=== PATIENT | female | born 1960 | race African-American/Black ===

== ENCOUNTER 2018-06-14 17:36 | Inpatient (IN) | payer OTHER ==
[~2018-06-14] VITALS: Ht 157.5 cm; Wt 54.9 kg
[2018-06-14] MEDS ORDERED: NORTRIPTYLINE H10 MG PO (17:46)
[2018-06-14] MEDS ORDERED: NORVASC5 MG ORAL (17:46)
[2018-06-14 17:51] VITALS: BP 122/77
[2018-06-14 19:12] LABS: BASOPHILS % (AUTO) 1.9 % (0.0-2.0); EOSINOPHILS % (AUTO) 0.8 % (0.0-3.0); HEMATOCRIT 45.8 % (37.0-47.0); HEMOGLOBIN 14.7 G/DL (12.0-16.0); LYMPHOCYTES % (AUTO) 14.8 % (20.0-45.0); MEAN CORPUSCULAR VOLUME 94 FL (80-99); MONOCYTES % (AUTO) 10.7 % (1.0-10.0); NEUTROPHILS % (AUTO) 71.7 % (45.0-75.0); PLATELET COUNT 211 K/UL (150-450); RED BLOOD COUNT 4.85 M/UL (4.20-5.40); RED CELL DISTRIBUTION WIDTH 13.1 % (11.6-14.8); WHITE BLOOD COUNT 7.3 K/UL (4.8-10.8)
[2018-06-14 19:43] LABS: ANION GAP 9 mmol/L (5-15); BLOOD UREA NITROGEN 11 mg/dL (7-18); CALCIUM 9.4 MG/DL (8.5-10.1); CARBON DIOXIDE 27 MMOL/L (21-32); CHLORIDE 106 MMOL/L (98-107); CREATININE 0.9 MG/DL (0.55-1.30); POTASSIUM 3.7 MMOL/L (3.5-5.1); SODIUM 142 MMOL/L (136-145)
[2018-06-14 19:57] LABS: ALANINE AMINOTRANSFERASE 25 U/L (12-78); ALBUMIN/GLOBULIN RATIO 1.1 (1.0-2.7); ALKALINE PHOSPHATASE 71 U/L (46-116); ASPARTATE AMINO TRANSFERASE 18 U/L (15-37); BILIRUBIN,TOTAL 0.8 MG/DL (0.2-1.0); CKMB 1.1 NG/ML (0.0-3.6); CREATINE KINASE 98 U/L (26-308)
[2018-06-14] MEDS ORDERED: PEPCID AC20 M2 PO (20:04)
[2018-06-14] MEDS ORDERED: Nitroglycerin 2% oint pkt TOPIC ONE (20:15)
[2018-06-14] MEDS ORDERED: PANTOPRAZOLE SO40 MG ORAL (20:24)
[2018-06-14] MEDS ORDERED: MURINE EAR WAX15 ML OT ×2 (20:24→20:25)
[2018-06-14 20:47] VITALS: BP 163/82
--- NOTE | 2018-06-14 21:09 | Emergency Room Report ---
History of Present Illness General Chief Complaint: Chest Pain Source: Patient (Olga Adair DO) Present Illness HPI Patient presents with complaints of chest pain and palpitations Reports that over the past 24 hours she had several episodes Today prior to arrival she had another episode where she felt tickling sensation throughout her chest Sharp pain as well not midsternal region There was some component of shortness of breath which has resolved Patient has recently been started on blood pressure medication about 7 days ago Patient's sister is also physician whom i spoke with over the phone Denies any other recent travel Denies any vomiting or diarrhea denies any fevers or chills (ThereseOlga wang ) Allergies: Coded Allergies: ASPIRIN (Verified Allergy, Mild, HIVE, 06/14/18) IBUPROFEN (Verified Allergy, Unknown, 06/14/18) Patient History Past Medical History: see triage record Pertinent Family History: none Reviewed Nursing Documentation: PMH: Agreed; PSxH: Agreed (Olga Adair DO) Nursing Documentation-PMH Past Medical History: No Stated History (ThereseOlga wang DO) Review of Systems All Other Systems: negative except mentioned in HPI (Olga Adair DO) Physical Exam Vital Signs Date Time Temp Pulse Resp B/P (MAP) Pulse Ox O2 Delivery O2 Flow Rate FiO2 06/14/18 17:42 98.4 116 16 160/93 97 Room Air 06/14/18 17:51 99 Sp02 EP Interpretation: reviewed, normal General Appearance: well appearing, no apparent distress Head: normocephalic, atraumatic Eyes: bilateral eye PERRL, bilateral eye EOMI ENT: hearing grossly normal, normal pharynx, TMs + canals normal, uvula midline Neck: full range of motion, supple, no meningismus, no bony tend Respiratory: lungs clear, normal breath sounds, no rhonchi, no respiratory distress, no retraction, no accessory muscle use Cardiovascular #1: normal peripheral pulses, regular rate, rhythm, no edema, no gallop, no JVD, no murmur Gastrointestinal: normal bowel sounds, non tender, soft, no mass, no organomegaly, non-distended, no guarding, no hernia, no pulsatile mass, no rebound Genitourinary: no CVA tenderness Musculoskeletal: normal inspection Neurologic: oriented x3, responsive, structural manager III-XII nml as tested, motor strength/ tone normal, sensory intact Psychiatric: mood/affect normal Skin: normal color, no rash, warm/dry, palpation normal Lymphatic: normal inspection, no adenopathy (Olga Adair DO) Medical Decision Making Diagnostic Impression: Primary Impression: ACS (acute coronary syndrome) Additional Impression: Hypertension Qualified Codes: I10 - Essential (primary) hypertension ER Course Patient is a fairly complex patient with multiple differential to consideration including but not limited to cardiac cardiopulmonary and vascular emergencies Patient's blood work is appropriate given some question regarding short of breath d-dimer was also obtained which was negative Patient continues not to display any pleurisy Patient was provided with nitroglycerin listed allergies of aspirin Has done better Given the recent diagnoses her complaints and presentation patient was admitted for further care Labs Test 06/14/18 18:30 White Blood Count 7.3 K/UL (4.8-10.8) Red Blood Count 4.85 M/UL (4.20-5.40) Hemoglobin 14.7 G/DL (12.0-16.0) Hematocrit 45.8 % (37.0-47.0) Mean Corpuscular Volume 94 FL (80-99) Mean Corpuscular Hemoglobin 30.3 PG (27.0-31.0) Mean Corpuscular Hemoglobin Concent 32.2 G/DL (32.0-36.0) Red Cell Distribution Width 13.1 % (11.6-14.8) Platelet Count 211 K/UL (150-450) Mean Platelet Volume 7.3 FL (6.5-10.1) Neutrophils (%) (Auto) 71.7 % (45.0-75.0) Lymphocytes (%) (Auto) 14.8 % (20.0-45.0) Monocytes (%) (Auto) 10.7 % (1.0-10.0) Eosinophils (%) (Auto) 0.8 % (0.0-3.0) Basophils (%) (Auto) 1.9 % (0.0-2.0) D-Dimer 0.19 mg/L FEU (0.00-0.49) Sodium Level 142 MMOL/L (136-145) Potassium Level 3.7 MMOL/L (3.5-5.1) Chloride Level 106 MMOL/L (98-107) Carbon Dioxide Level 27 MMOL/L (21-32) Anion Gap 9 mmol/L (5-15) Blood Urea Nitrogen 11 mg/dL (7-18) Creatinine 0.9 MG/DL (0.55-1.30) Estimat Glomerular Filtration Rate > 60 mL/min (>60) Glucose Level 116 MG/DL (74-106) Calcium Level 9.4 MG/DL (8.5-10.1) Total Bilirubin 0.8 MG/DL (0.2-1.0) Aspartate Amino Transf (AST/SGOT) 18 U/L (15-37) Alanine Aminotransferase (ALT/SGPT) 25 U/L (12-78) Alkaline Phosphatase 71 U/L (46-116) Total Creatine Kinase 98 U/L (26-308) Creatine Kinase MB 1.1 NG/ML (0.0-3.6) Creatine Kinase MB Relative Index 1.1 Troponin I 0.000 ng/mL (0.000-0.056) Pro-B-Type Natriuretic Peptide 38 pg/mL (0-125) Total Protein 7.7 G/DL (6.4-8.2) Albumin 4.0 G/DL (3.4-5.0) Globulin 3.7 g/dL Albumin/Globulin Ratio 1.1 (1.0-2.7) (Olga Adair DO) ER Course Patient signout to me by Dr. Adair. She presents with chest pain and hypertension. She is currently not on any medication. Chest pain resolved after nitroglycerin. Labs unremarkable. Troponin negative. D-dimer negative. Patient approved by insurance to be admitted here. I contacted Dr. Cornell for admission. (Johann Shields MD) EKG Diagnostic Results Rate: normal Rhythm: NSR ST Segments: other - LVH, nonspecific ST T-wave changes (Olga Adair DO) Rhythm Strip Diag. Results EP Interpretation: yes Rate: 98 Rhythm: NSR, no PVC's, no ectopy (Olga Adair DO) Chest X-Ray Diagnostic Results Chest X-Ray Diagnostic Results : Chest X-Ray Ordered: Yes # of Views/Limited/Complete: 1 View Indication: Chest Pain EP Interpretation: Yes Interpretation: no consolidation, no effusion, no pneumothorax Impression: No acute disease Electronically Signed by: Olga Adair DO (Olga Adair DO) Last Vital Signs Date Time Temp Pulse Resp B/P (MAP) Pulse Ox O2 Delivery O2 Flow Rate FiO2 06/14/18 20:47 97.8 103 17 163/82 100 Room Air 06/14/18 17:51 99 Status: improved (Olga Adair DO) Status: improved (Johann Shields MD) Disposition: ADMITTED INPATIENT Condition: Serious Scripts Famotidine (PEPCID AC) 20 Mg Tablet 20 MG PO DAILY for 7 Days, TAB Prov: Olga Adair DO 06/14/18 Referrals: Lana FITZPATRICK,REFERRING (PCP) Patient Instructions: Nonspecific Chest Pain Olga Adair DO Jun 14, 2018 21:09 Johann Shields MD Jun 14, 2018 21:49
[2018-06-15] VITALS: BP 147/90
[2018-06-15] MEDS ORDERED: Nitroglycerin Subl 0.4mg tab SL PRN (00:15)
[2018-06-15 01:44] LABS: APPEARANCE,URINE CLEAR; BILIRUBIN, URINE NEGATIVE (NEGATIVE); COLOR,URINE PALE YELLOW; GLUCOSE, URINE (UA) NEGATIVE (NEGATIVE); KETONES,URINE NEGATIVE (NEGATIVE); LEUKOCYTE ESTERASE ,URINE 2+ (NEGATIVE); NITRITE,URINE NEGATIVE (NEGATIVE); PH,URINE 7 (4.5-8.0); PROTEIN,URINE NEGATIVE (NEGATIVE); UROBILINOGEN,URINE NORMAL MG/DL (0.0-1.0)
[2018-06-15 04:00] VITALS: BP 124/81
[2018-06-15 07:35] LABS: BASOPHILS % (AUTO) 2.1 % (0.0-2.0); EOSINOPHILS % (AUTO) 0.7 % (0.0-3.0); HEMATOCRIT 42.8 % (37.0-47.0); LYMPHOCYTES % (AUTO) 24.8 % (20.0-45.0); MEAN CORPUSCULAR VOLUME 95 FL (80-99); NEUTROPHILS % (AUTO) 56.4 % (45.0-75.0); PLATELET COUNT 204 K/UL (150-450); RED BLOOD COUNT 4.52 M/UL (4.20-5.40); RED CELL DISTRIBUTION WIDTH 13.2 % (11.6-14.8); WHITE BLOOD COUNT 5.7 K/UL (4.8-10.8)
[2018-06-15 07:40] VITALS: BP 140/80
[2018-06-15 08:03] LABS: ANION GAP 8 mmol/L (5-15); BLOOD UREA NITROGEN 10 mg/dL (7-18); CALCIUM 8.7 MG/DL (8.5-10.1); CARBON DIOXIDE 27 MMOL/L (21-32); CHLORIDE 106 MMOL/L (98-107); CREATININE 0.8 MG/DL (0.55-1.30); POTASSIUM 3.7 MMOL/L (3.5-5.1); SODIUM 141 MMOL/L (136-145)
[2018-06-15] MEDS: Heparin 5000 units/ml inj SUBQ SCH ×2 (08:12→21:00)
--- NOTE | 2018-06-15 09:20 | History and Physical ---
History of Present Illness General Date patient seen: Jun 15, 2018 Time patient seen: 08:00 Reason for Hospitalization: Chest Pain Present Illness HPI 57 year old woman with history of HTN who presented to the ED with 1 week of intermittent left sided chest tightness. No discreet pain, no radiation, no diaphoresis or nausea. Past medical history: HTN Family History: No history of premature CAD Social History: Patient is a never smoker Allergies: Coded Allergies: ASPIRIN (Verified Allergy, Mild, HIVE, 06/14/18) IBUPROFEN (Verified Allergy, Unknown, 06/14/18) Medication History Scheduled Amlodipine Besylate (Norvasc), 5 MG ORAL DAILY, (Reported) Famotidine (Pepcid Ac), 20 MG PO DAILY Nortriptyline Hcl (Nortriptyline Hcl), 10 MG PO BEDTIME, (Reported) Scheduled PRN Carbamide Peroxide (Murine Ear Wax Removal System), 15 ML OT DAILY PRN for wax buildup, (Reported) Patient History Healthcare decision maker Resuscitation status Full Code Advanced Directive on File No Review of Systems Constitutional: Denies: chills, sweats Eye: Denies: eye pain, blurred vision ENT: Denies: ear pain, ear discharge Respiratory: Denies: cough, orthopnea Cardiovascular: Denies: chest pain, edema, palpitations Gastrointestinal: Denies: abdominal pain, constipation Genitourinary: Denies: discharge, dysuria Musculoskeletal: Denies: back pain, gout Skin: Denies: rash, change in color Neurological: Denies: headache, numbness Endocrine: Denies: excessive sweating Hematologic/Lymphatic: Denies: anemia Physical Exam General Appearance: no apparent distress, alert HEENT: normocephalic, anicteric Neck: non-tender, normal alignment Respiratory/Chest: chest wall non-tender, lungs clear, normal breath sounds Cardiovascular/Chest: normal peripheral pulses, normal rate, regular rhythm Abdomen: normal bowel sounds, non tender, soft Genitourinary/Rectal: normal genital exam Extremities: normal range of motion, non-tender Skin Exam: normal pigmentation, warm/dry Neurologic: naphthalene still operator II-XII grossly normal, no motor/sensory deficits Last 24 Hour Vital Signs Date Time Temp Pulse Resp B/P (MAP) Pulse Ox O2 Delivery O2 Flow Rate FiO2 06/15/18 08:12 90 140/80 06/15/18 07:40 90 20 140/80 (100) 97 06/15/18 07:10 Room Air 06/15/18 04:00 100.4 96 20 124/81 (95) 97 06/15/18 00:34 Room Air 06/15/18 00:00 109 06/15/18 00:00 97.9 108 20 147/90 (109) 97 06/14/18 23:17 98.5 105 13 156/80 99 Room Air 06/14/18 20:47 97.8 103 17 163/82 100 Room Air 06/14/18 20:14 173/79 06/14/18 17:51 81 17 Room Air 99 06/14/18 17:51 97.8 81 17 122/77 99 Room Air 06/14/18 17:42 98.4 116 16 160/93 97 Room Air Intake and Output 06/14/18 06/15/18 19:00 07:00 Intake Total 0 ml Balance 0 ml Intake Oral 0 ml # Voids 1 2 Laboratory Tests Test 06/14/18 18:30 06/15/18 01:00 06/15/18 06:55 White Blood Count 7.3 K/UL (4.8-10.8) 5.7 K/UL (4.8-10.8) Red Blood Count 4.85 M/UL (4.20-5.40) 4.52 M/UL (4.20-5.40) Hemoglobin 14.7 G/DL (12.0-16.0) 14.0 G/DL (12.0-16.0) Hematocrit 45.8 % (37.0-47.0) 42.8 % (37.0-47.0) Mean Corpuscular Volume 94 FL (80-99) 95 FL (80-99) Mean Corpuscular Hemoglobin 30.3 PG (27.0-31.0) 31.0 PG (27.0-31.0) Mean Corpuscular Hemoglobin Concent 32.2 G/DL (32.0-36.0) 32.7 G/DL (32.0-36.0) Red Cell Distribution Width 13.1 % (11.6-14.8) 13.2 % (11.6-14.8) Platelet Count 211 K/UL (150-450) 204 K/UL (150-450) Mean Platelet Volume 7.3 FL (6.5-10.1) 7.7 FL (6.5-10.1) Neutrophils (%) (Auto) 71.7 % (45.0-75.0) 56.4 % (45.0-75.0) Lymphocytes (%) (Auto) 14.8 % (20.0-45.0) L 24.8 % (20.0-45.0) Monocytes (%) (Auto) 10.7 % (1.0-10.0) H 16.0 % (1.0-10.0) H Eosinophils (%) (Auto) 0.8 % (0.0-3.0) 0.7 % (0.0-3.0) Basophils (%) (Auto) 1.9 % (0.0-2.0) 2.1 % (0.0-2.0) H D-Dimer 0.19 mg/L FEU (0.00-0.49) Sodium Level 142 MMOL/L (136-145) 141 MMOL/L (136-145) Potassium Level 3.7 MMOL/L (3.5-5.1) 3.7 MMOL/L (3.5-5.1) Chloride Level 106 MMOL/L (98-107) 106 MMOL/L (98-107) Carbon Dioxide Level 27 MMOL/L (21-32) 27 MMOL/L (21-32) Anion Gap 9 mmol/L (5-15) 8 mmol/L (5-15) Blood Urea Nitrogen 11 mg/dL (7-18) 10 mg/dL (7-18) Creatinine 0.9 MG/DL (0.55-1.30) 0.8 MG/DL (0.55-1.30) Estimat Glomerular Filtration Rate > 60 mL/min (>60) > 60 mL/min (>60) Glucose Level 116 MG/DL (74-106) H 101 MG/DL (74-106) Calcium Level 9.4 MG/DL (8.5-10.1) 8.7 MG/DL (8.5-10.1) Total Bilirubin 0.8 MG/DL (0.2-1.0) Aspartate Amino Transf (AST/SGOT) 18 U/L (15-37) Alanine Aminotransferase (ALT/SGPT) 25 U/L (12-78) Alkaline Phosphatase 71 U/L (46-116) Total Creatine Kinase 98 U/L (26-308) Creatine Kinase MB 1.1 NG/ML (0.0-3.6) Creatine Kinase MB Relative Index 1.1 Troponin I 0.000 ng/mL (0.000-0.056) 0.014 ng/mL (0.000-0.056) Pro-B-Type Natriuretic Peptide 38 pg/mL (0-125) Total Protein 7.7 G/DL (6.4-8.2) Albumin 4.0 G/DL (3.4-5.0) Globulin 3.7 g/dL Albumin/Globulin Ratio 1.1 (1.0-2.7) Urine Color Pale yellow Urine Appearance Clear Urine pH 7 (4.5-8.0) Urine Specific [place] 1.015 (1.005-1.035) Urine Protein Negative (NEGATIVE) Urine Glucose (UA) Negative (NEGATIVE) Urine Ketones Negative (NEGATIVE) Urine Blood Negative (NEGATIVE) Urine Nitrite Negative (NEGATIVE) Urine Bilirubin Negative (NEGATIVE) Urine Urobilinogen Normal MG/DL (0.0-1.0) Urine Leukocyte Esterase 2+ (NEGATIVE) H Urine RBC 0-2 /HPF (0 - 2) Urine WBC 5-10 /HPF (0 - 2) H Urine Squamous Epithelial Cells Few /LPF (NONE/OCC) Urine Bacteria Few /HPF (NONE) Hemoglobin A1c 6.3 % (4.3-6.0) H Height (Feet): 5 Height (Inches): 2.00 Weight (Pounds): 121 Medications Current Medications Medications (Trade) Dose Ordered Sig/Ventura Route PRN Reason Start Time Stop Time Status Last Admin Dose Admin Amlodipine Besylate (Norvasc) 5 mg DAILY ORAL 06/15/18 09:00 07/15/18 08:59 06/15/18 08:12 Heparin Sodium (Porcine) (Heparin 5000 units/ml) 5,000 units EVERY 12 HOURS SUBQ 06/15/18 09:00 07/15/18 08:59 Nitroglycerin (Ntg) 0.4 mg Q5M PRN SL Prn Chest Pain 06/15/18 00:15 07/15/18 00:14 Nortriptyline HCl (Pamelor) 10 mg BEDTIME ORAL 2/5/19 21:00 07/15/18 20:59 Temazepam (Restoril) 7.5 mg HSPRN PRN ORAL Insomnia 06/15/18 00:15 06/22/18 00:14 06/15/18 00:48 Assessment/Plan Assessment/Plan #Intermittent chest tightness, concern for ACS admit to observation check serial cardiac enzymes monitor on telemetry add ASA and statin check Lipid panel Cardiology consulted #Essential HTN continue amlodipine VTE PPx heparin sc Full Code Bennie Arzate MD Jun 15, 2018 09:20
[2018-06-15] MEDS ORDERED: Acetaminophen 500mg (ES) tab ORAL SCH (10:45)
--- NOTE | 2018-06-15 11:39 | Diagnostic Imaging Report ---
Indication: Chest pain Comparison: None A single view chest radiograph was obtained. Findings: Cardiomediastinal appearance is within normal limits for age. The lungs are clear. Pulmonary vascularity is appropriate. The diaphragmatic contour is smooth and costophrenic angles are sharp. No pleural effusions are identified. The bones are unremarkable. Impression: No acute findings
[2018-06-15 12:00] VITALS: BP 144/81
--- NOTE | 2018-06-15 13:39 | Cardiology Report ---
APPROVED REPORT EKG Measurement Heart [id number] [place] 144P44 [id number] Sinus rhythm withmotion artifact Otherwise normal ECG
--- NOTE | 2018-06-15 13:41 | Cardiology Report ---
APPROVED REPORT EKG Measurement Heart [id number] MA 130P76 [id number] Normal sinus rhythm Right atrial enlargement Voltage criteria for left ventricular hypertrophy Abnormal ECG
--- NOTE | 2018-06-15 15:56 | Cardiac Electrophysiology PN ---
Subjective Subjective [id number] Objective Last 24 Hour Vital Signs Date Time Temp Pulse Resp B/P (MAP) Pulse Ox O2 Delivery O2 Flow Rate FiO2 06/15/18 12:00 97.7 91 20 144/81 (102) 97 06/15/18 11:48 112 06/15/18 11:26 98.4 06/15/18 08:12 90 140/80 06/15/18 08:00 98.4 06/15/18 07:45 95 06/15/18 07:40 90 20 140/80 (100) 97 06/15/18 07:10 Room Air 06/15/18 04:00 100.4 96 20 124/81 (95) 97 06/15/18 00:34 Room Air 06/15/18 00:00 109 06/15/18 00:00 97.9 108 20 147/90 (109) 97 06/14/18 23:17 98.5 105 13 156/80 99 Room Air 06/14/18 20:47 97.8 103 17 163/82 100 Room Air 06/14/18 20:14 173/79 06/14/18 17:51 81 17 Room Air 99 06/14/18 17:51 97.8 81 17 122/77 99 Room Air 06/14/18 17:42 98.4 116 16 160/93 97 Room Air Intake and Output 06/14/18 06/15/18 18:59 06:59 Intake Total 0 ml Balance 0 ml Intake Oral 0 ml # Voids 1 2 Laboratory Tests Test 06/14/18 18:30 06/15/18 01:00 06/15/18 06:55 06/15/18 12:50 White Blood Count 7.3 K/UL (4.8-10.8) 5.7 K/UL (4.8-10.8) Red Blood Count 4.85 M/UL (4.20-5.40) 4.52 M/UL (4.20-5.40) Hemoglobin 14.7 G/DL (12.0-16.0) 14.0 G/DL (12.0-16.0) Hematocrit 45.8 % (37.0-47.0) 42.8 % (37.0-47.0) Mean Corpuscular Volume 94 FL (80-99) 95 FL (80-99) Mean Corpuscular Hemoglobin 30.3 PG (27.0-31.0) 31.0 PG (27.0-31.0) Mean Corpuscular Hemoglobin Concent 32.2 G/DL (32.0-36.0) 32.7 G/DL (32.0-36.0) Red Cell Distribution Width 13.1 % (11.6-14.8) 13.2 % (11.6-14.8) Platelet Count 211 K/UL (150-450) 204 K/UL (150-450) Mean Platelet Volume 7.3 FL (6.5-10.1) 7.7 FL (6.5-10.1) Neutrophils (%) (Auto) 71.7 % (45.0-75.0) 56.4 % (45.0-75.0) Lymphocytes (%) (Auto) 14.8 % (20.0-45.0) L 24.8 % (20.0-45.0) Monocytes (%) (Auto) 10.7 % (1.0-10.0) H 16.0 % (1.0-10.0) H Eosinophils (%) (Auto) 0.8 % (0.0-3.0) 0.7 % (0.0-3.0) Basophils (%) (Auto) 1.9 % (0.0-2.0) 2.1 % (0.0-2.0) H D-Dimer 0.19 mg/L FEU (0.00-0.49) Sodium Level 142 MMOL/L (136-145) 141 MMOL/L (136-145) Potassium Level 3.7 MMOL/L (3.5-5.1) 3.7 MMOL/L (3.5-5.1) Chloride Level 106 MMOL/L (98-107) 106 MMOL/L (98-107) Carbon Dioxide Level 27 MMOL/L (21-32) 27 MMOL/L (21-32) Anion Gap 9 mmol/L (5-15) 8 mmol/L (5-15) Blood Urea Nitrogen 11 mg/dL (7-18) 10 mg/dL (7-18) Creatinine 0.9 MG/DL (0.55-1.30) 0.8 MG/DL (0.55-1.30) Estimat Glomerular Filtration Rate > 60 mL/min (>60) > 60 mL/min (>60) Glucose Level 116 MG/DL (74-106) H 101 MG/DL (74-106) Calcium Level 9.4 MG/DL (8.5-10.1) 8.7 MG/DL (8.5-10.1) Total Bilirubin 0.8 MG/DL (0.2-1.0) Aspartate Amino Transf (AST/SGOT) 18 U/L (15-37) Alanine Aminotransferase (ALT/SGPT) 25 U/L (12-78) Alkaline Phosphatase 71 U/L (46-116) Total Creatine Kinase 98 U/L (26-308) Creatine Kinase MB 1.1 NG/ML (0.0-3.6) Creatine Kinase MB Relative Index 1.1 Troponin I 0.000 ng/mL (0.000-0.056) 0.014 ng/mL (0.000-0.056) 0.000 ng/mL (0.000-0.056) Pro-B-Type Natriuretic Peptide 38 pg/mL (0-125) Total Protein 7.7 G/DL (6.4-8.2) Albumin 4.0 G/DL (3.4-5.0) Globulin 3.7 g/dL Albumin/Globulin Ratio 1.1 (1.0-2.7) Urine Color Pale yellow Urine Appearance Clear Urine pH 7 (4.5-8.0) Urine Specific [place] 1.015 (1.005-1.035) Urine Protein Negative (NEGATIVE) Urine Glucose (UA) Negative (NEGATIVE) Urine Ketones Negative (NEGATIVE) Urine Blood Negative (NEGATIVE) Urine Nitrite Negative (NEGATIVE) Urine Bilirubin Negative (NEGATIVE) Urine Urobilinogen Normal MG/DL (0.0-1.0) Urine Leukocyte Esterase 2+ (NEGATIVE) H Urine RBC 0-2 /HPF (0 - 2) Urine WBC 5-10 /HPF (0 - 2) H Urine Squamous Epithelial Cells Few /LPF (NONE/OCC) Urine Bacteria Few /HPF (NONE) Hemoglobin A1c 6.3 % (4.3-6.0) H Sergio Cho MD Jun 15, 2018 15:56
[2018-06-15] MEDS ORDERED: Lexiscan 0.4mg/5ml syringe IV PRN (15:59)
[2018-06-15 17:34] VITALS: BP 142/89
--- NOTE | 2018-06-15 19:30 | Consultation ---
DATE OF CONSULTATION: 06/15/2018 CARDIOLOGY CONSULTATION CONSULTING PHYSICIAN: Sergio Cho M.D. REFERRING PHYSICIAN: Johnny Cornell M.D. REASON FOR CONSULTATION: Chest pain, the patient with history of hypertension. HISTORY OF PRESENT ILLNESS: The patient is a very pleasant 57-year-old lady with history of hypertension presented to the emergency room with complaints of left-sided chest pain. The patient did not have any radiation, nausea, vomiting, or diaphoresis. The patient denies any known prior myocardial infarction or coronary artery disease. The patient's first set of cardiac enzymes were negative and the patient was admitted. Cardiology consultation was obtained for further evaluation and management. REVIEW OF SYSTEMS: Review of systems was negative other than what was mentioned in the history of present illness. PAST MEDICAL HISTORY: Hypertension. ALLERGIES: She is allergic to aspirin and ibuprofen. MEDICATIONS: At home include Norvasc 5 mg daily, Pepcid, and nortriptyline at bedtime. SOCIAL HISTORY: She lives at home, denies smoking or drinking alcohol. PHYSICAL EXAMINATION: VITAL SIGNS: Show blood pressure of 144/81, pulse is 90, respirations 20, and she is afebrile. HEAD AND NECK: Showed no JVD or carotid bruits. LUNGS: Clear. CARDIOVASCULAR: Regular S1 and S2 with no gallop or murmur. ABDOMEN: Soft and nontender. EXTREMITIES: No pitting edema. LABORATORY AND DIAGNOSTIC DATA: Her EKG shows normal sinus rhythm, normal electrocardiogram. Her labs show white count of 5.7, hematocrit of 14, hematocrit of 42.8, and platelet count 204. Sodium 141, potassium 3.7, BUN of 10, creatinine 0.8. Troponin negative x3. ASSESSMENT AND PLAN: 1. Atypical chest pain. The patient was ruled out for myocardial infarction with serial cardiac enzymes. EKG is nonischemic, actually is completely normal. We will get an echocardiogram and schedule the patient for nuclear stress test for further evaluation and management. 2. Hypertension. Continue Norvasc 5 mg daily. 3. Depression on Nortriptyline 10 mg . Thank you very much for allowing me participate in the care of this patient. Please do not hesitate to contact for any questions regarding my evaluation. Sincerely, Sergio Cho M.D. DR: Ruth Ann JOB#: [id number] CC:
[2018-06-15 20:00] VITALS: BP 148/98
[2018-06-15] MEDS: Nortriptyline 10mg cap ORAL SCH ×2 (20:58→21:00)
[2018-06-16] VITALS: BP 124/84
[2018-06-16 04:00] VITALS: BP 122/80
[2018-06-16 06:58] LABS: CHOLESTEROL 163 MG/DL (< 200); HDL CHOLESTEROL 46 MG/DL (40-60); TRIGLYCERIDES 41 MG/DL (30-150)
[2018-06-16 08:00] VITALS: BP 130/81
[2018-06-16] MEDS: Heparin 5000 units/ml inj SUBQ SCH ×2 (09:01→21:31)
[2018-06-16 12:00] VITALS: BP 134/88
--- NOTE | 2018-06-16 15:10 | Cardiac Electrophysiology PN ---
Assessment/Plan Assessment/Plan 1. Atypical chest pain. The patient was ruled out for myocardial infarction with serial cardiac enzymes. EKG is completely normal. Echocardiogram EF 55%. Reschedule the patient for nuclear stress test 2. Hypertension. Continue Norvasc 5 mg daily. 3. Depression on Nortriptyline 10 mg DW RN Subjective Subjective Stress test cancelled as patient ate.No CP or SOB Objective Last 24 Hour Vital Signs Date Time Temp Pulse Resp B/P (MAP) Pulse Ox O2 Delivery O2 Flow Rate FiO2 06/16/18 12:00 98.5 97 20 134/88 (103) 100 06/16/18 09:00 Room Air 06/16/18 08:47 113 130/81 06/16/18 08:00 97.7 113 21 130/81 (97) 97 06/16/18 08:00 81 06/16/18 04:00 98.1 96 17 122/80 (94) 94 06/16/18 04:00 96 06/16/18 00:00 99.0 88 18 124/84 (97) 98 06/16/18 00:00 88 06/15/18 21:00 Room Air 06/15/18 20:00 97 06/15/18 20:00 98.6 97 18 148/98 (115) 97 06/15/18 17:34 97.7 82 20 142/89 (106) 97 06/15/18 16:08 82 Intake and Output 06/15/18 06/16/18 19:00 07:00 Intake Total 840 ml 240 ml Balance 840 ml 240 ml Intake Oral 840 ml 240 ml # Voids 2 1 Laboratory Tests Test 06/16/18 05:40 Triglycerides Level 41 MG/DL (30-150) Cholesterol Level 163 MG/DL (< 200) LDL Cholesterol 104 mg/dL (<100) H HDL Cholesterol 46 MG/DL (40-60) Cholesterol/HDL Ratio 3.5 (3.3-4.4) Thyroid Stimulating Hormone (TSH) 1.359 uiU/mL (0.358-3.740) Microbiology Date/Time Source Procedure Growth Status 06/15/18 01:00 Urine,Clean Catch Urine Culture - Preliminary Mixed Gram Positive Organism Resulted Objective HEAD AND NECK: No JVD . LUNGS: Clear. CARDIOVASCULAR: Regular S1 and S2 with no gallop or murmur. ABDOMEN: Soft and nontender. EXTREMITIES: No pitting edema. Sergio Cho MD Jun 16, 2018 15:10
[2018-06-16 16:00] VITALS: BP 143/93
--- NOTE | 2018-06-16 17:33 | Cardiology Report ---
APPROVED REPORT EXAM: Two-dimensional and M-mode echocardiogram with Doppler and color Doppler. INDICATION Chest Pain M-Mode DIMENSIONS IVSd0.8 (0.7-1.1cm)Left Atrium (MM)2.6 (1.6-4.0cm) LVDd3.6 (3.5-5.6cm)Aortic Root2.6 (2.0-3.7cm) PWd1.0 (0.7-1.1cm)Aortic Cusp Exc.1.7 (1.5-2.0cm) LVDs2.7 (2.5-4.0cm) PWs1.2 cm Technically difficult study due to poor acoustical windows. Normal left ventricular chamber size. Anterior wall hypokinesis. Left ventricular ejection fraction estimated to be 55 % to extent visualized. No eveidence of left ventricular hypertrophy. No evidence of pericardial effusion. All other cardiac chamber sizes are within normal limits. Focal aortic valve sclerosis with adequate cusp excursion. Thickened mitral valve leaflets with normal excursion. Mitral annulus and aortic root calcification. Pulmonic valve not well visualized. Normal tricuspid valve structure. IVC at normal size with slight physiologic collapse A color flow and spectral Doppler study was performed and revealed: No aortic regurgitation. Trace mitral regurgitation. Mitral diastolic velocities suggest reduced left ventricular relaxation c/w mild LV diastolic dysfunction (Grade I). Trace tricuspid regurgitation. Tricuspid systolic velocities suggests peak right ventricular systolic pressure of 10 mmHg
--- NOTE | 2018-06-16 18:51 | General Progress Note ---
Assessment/Plan Assessment/Plan #Intermittent chest tightness, concern for ACS AMI ruled out cont ASA and statin awaiting stress test and TTE Spoke with Cardiology #Essential HTN continue amlodipine VTE PPx heparin sc Full Code Subjective Date patient seen: Jun 16, 2018 Time patient seen: 13:35 ROS Limited/Unobtainable: No Constitutional: Denies: chills Cardiovascular: Denies: chest pain Respiratory: Denies: cough Gastrointestinal/Abdominal: Denies: abdomen distended Allergies: Coded Allergies: ASPIRIN (Verified Allergy, Mild, HIVE, 06/14/18) IBUPROFEN (Verified Allergy, Unknown, 06/14/18) Subjective Medicine follow up for possible ACS. AMI ruled out. Awaiting stress testing and TTE. Objective Last 24 Hour Vital Signs Date Time Temp Pulse Resp B/P (MAP) Pulse Ox O2 Delivery O2 Flow Rate FiO2 06/16/18 16:00 87 06/16/18 16:00 98.0 87 20 143/93 (110) 97 06/16/18 12:00 98.5 97 20 134/88 (103) 100 06/16/18 12:00 92 06/16/18 09:00 Room Air 06/16/18 08:47 113 130/81 06/16/18 08:00 97.7 113 21 130/81 (97) 97 06/16/18 08:00 81 06/16/18 04:00 98.1 96 17 122/80 (94) 94 06/16/18 04:00 96 06/16/18 00:00 99.0 88 18 124/84 (97) 98 06/16/18 00:00 88 06/15/18 21:00 Room Air 06/15/18 20:00 97 06/15/18 20:00 98.6 97 18 148/98 (115) 97 Intake and Output 06/15/18 06/16/18 18:59 06:59 Intake Total 840 ml 240 ml Balance 840 ml 240 ml Intake Oral 840 ml 240 ml # Voids 2 1 Laboratory Tests 06/16/18 05:40: Triglycerides Level 41, Cholesterol Level 163, LDL Cholesterol 104H, HDL Cholesterol 46, Cholesterol/HDL Ratio 3.5, Thyroid Stimulating Hormone (TSH) 1.359 Height (Feet): 5 Height (Inches): 2.00 Weight (Pounds): 121 General Appearance: no apparent distress, alert Neck: non-tender, normal alignment Cardiovascular: normal peripheral pulses, normal rate, regular rhythm Respiratory/Chest: chest wall non-tender, lungs clear Abdomen: normal bowel sounds, non tender Bennie Arzate MD Jun 16, 2018 18:51
[2018-06-16 20:00] VITALS: BP 132/84
[2018-06-16] MEDS: Nortriptyline 10mg cap ORAL SCH (21:28)
[2018-06-17] VITALS: BP 134/84
[2018-06-17 04:00] VITALS: BP 123/90
[2018-06-17 08:00] VITALS: BP 131/89
[2018-06-17] MEDS: Heparin 5000 units/ml inj SUBQ SCH (08:55)
--- NOTE | 2018-06-17 09:49 | Cardiac Electrophysiology PN ---
Assessment/Plan Assessment/Plan 1. Atypical chest pain. The patient was ruled out for myocardial infarction with serial cardiac enzymes. EKG is completely normal. Echocardiogram EF 55%. Rescheduled the patient for nuclear stress test today 2. Hypertension. Continue Norvasc 5 mg daily. 3. Depression on Nortriptyline 10 mg DW RN Subjective Subjective Awaiting Stress test today.No CP or SOB Objective Last 24 Hour Vital Signs Date Time Temp Pulse Resp B/P (MAP) Pulse Ox O2 Delivery O2 Flow Rate FiO2 06/17/18 08:55 107 131/89 06/17/18 08:00 97.7 107 20 131/89 (103) 98 06/17/18 04:00 97.7 89 18 123/90 (101) 98 06/17/18 04:00 77 06/17/18 00:00 98.4 89 18 134/84 (101) 98 06/17/18 00:00 83 06/16/18 21:00 Room Air 06/16/18 20:00 93 06/16/18 20:00 98.5 84 18 132/84 (100) 97 06/16/18 16:00 87 06/16/18 16:00 98.0 87 20 143/93 (110) 97 06/16/18 12:00 98.5 97 20 134/88 (103) 100 06/16/18 12:00 92 Intake and Output 06/16/18 06/17/18 19:00 07:00 # Voids 4 2 Microbiology Date/Time Source Procedure Growth Status 06/15/18 01:00 Urine,Clean Catch Urine Culture - Final Mixed Gram Positive Organism Complete Objective HEAD AND NECK: No JVD . LUNGS: Clear. CARDIOVASCULAR: Regular S1 and S2 with no gallop or murmur. ABDOMEN: Soft and nontender. EXTREMITIES: No pitting edema. Sergio Cho MD Jun 17, 2018 09:48
[2018-06-17 12:00] VITALS: BP 149/81
--- NOTE | 2018-06-17 15:19 | Diagnostic Imaging Report ---
Indication: chest pain Technique: The study was conducted under the supervision of a rn practitioner. lexiscan (regadenoson) infusion over 10 seconds followed by intravenous administration of 30.9 mCi of technetium 99m Myoview was performed. Three plane SPECT imaging of the heart was then performed. A resting study was performed as part of the one-day protocol with 10.3 mCi of technetium 99m myoview injected intravenously at that time. Three plane SPECT imaging of the heart was obtained. Comparison: None Clinical data: 1. Clinical response: Non ischemic 2. Electrocardiographic response: Non ischemic Findings: The myocardial perfusion scan demonstrates no definite fixed or reversible perfusion defects. LVEF estimated at 76%. IMPRESSION: Negative myocardial perfusion scan
--- NOTE | 2018-06-17 15:36 | Discharge Summary ---
Discharge Summary Hospital Course Date of Admission Jun 14, 2018 at 22:01 Date of Discharge 06/17/18 Admitting Diagnosis acs HPI Gela Eisenberg is a 58 year old female who was admitted on Jun 14, 2018 at 22:01 for Acute Coronary Syndrome Hospital Course Patient presented with intermittent chest tightness, admitted to the medical service, AMI ruled out Seen by Cardiology. She underwent stress test and TTE that were unremarkable. D-dimer negative. She will be discharged home in stable condition. Discharge Discharge Disposition Patient was discharged to Bennie Arzate MD Jun 17, 2018 15:36
[2018-06-17 16:00] VITALS: BP 129/79
[2018-06-17] MEDS ORDERED: METOPROLOL SUCC25 MG ORAL (16:25)
[2018-06-17] MEDS ORDERED: Metoprolol 25mg tab ORAL SCH (18:00)
== END 2018-06-17 17:57 | disposition home or self-care (01) | DRG 313 ==
LOC: EMR 18:27 → 2E 22:01 → EDBEDREQ 22:48 → 2E 06-15 12:24
DX: R07.89 Other chest pain (principal); I10 Essential (primary) hypertension; F32.9 Major depressive disorder, single episode, unspecified
CPT/HCPCS: 36415; 71045; 78452; 80048; 80053; 80061; 81003; 82550; 82553; 83036; 83880; 84443; 84484; 85025; 85379; 87086; 93005; 93017; 93306; 99285; J2405; J2785